=== PATIENT | male | born 1960 | race African-American/Black ===

== ENCOUNTER 2023-07-12 11:23 | Inpatient (IN) | payer OTHER ==
[2023-07-12 12:04] LABS: #Basophils 0.1 10x3/uL (0.0-0.2); #Eosinphils 0.1 10x3/uL (0.0-0.5); #Neutrophils 15.2 10x3/uL (1.5-8.4); %Basophils 0.3 % (0.0-2.0); %Eosinophils 0.3 % (0.0-6.0); %Lymphocytes 8.4 % (18.0-47.0); %Monocytes 10.4 % (0.0-10.0); %Neutrophils 79.8 % (40.0-75.0); Hematocrit 41.3 % (38.8-50.0); Hemoglobin 13.9 g/dL (13.5-17.5); Mean Corpuscular HGB CONC 33.7 g/dL (32.0-36.0); Mean Corpuscular Hemoglobin 30.6 pg (27.0-33.0); Mean Platelet Volume 10.7 fl (7.4-10.4); Platelet Count 474 10x3/uL (150-450); RBC Distribution Width 12.6 % (11.5-14.5); Red Blood Cell (RBC) Count 4.54 10x6/uL (4.32-5.72); White Blood Cell (WBC) Count 19.1 10x3/uL (3.5-10.5)
[2023-07-12] MEDS ORDERED: Cefepime 2 GM VIAL ONE (12:08)
[2023-07-12] MEDS ORDERED: VANCOMYCIN 2 GRAM/400 ML BAG 2 GM in Premix 1 BAG IVPB SCH (12:15)
[2023-07-12 12:46] LABS: ALT (SGPT) 261 U/L (8-55); AST (SGOT) 175 U/L (5-34); Albumin 3.1 g/dL (3.4-4.8); Alkaline Phosphatase 153 U/L (40-110); Anion Gap 15 mmol/L (10-20); BUN (Urea Nitrogen) 16 mg/dL (8.4-25.7); Bilirubin, Total 1.1 mg/dL (0.2-1.2); Calc. Creatinine Clearance 0 mL/min (70-130); Calcium 9.6 mg/dL (7.8-10.44); Carbon Dioxide 22 mmol/L (23-31); Chloride 105 mmol/L (98-107); Estimated GFR 69; Glucose 146 mg/dL (80-115); Potassium 3.7 mmol/L (3.5-5.1); Protein, Total 7.1 g/dL (5.8-8.1); Sodium 138 mmol/L (136-145)
[2023-07-12 15:20] LABS: CRP (Inflammatory) 29.72 mg/dL (= or < 0.5)
[2023-07-12] MEDS ORDERED: Ondansetron PF 4 MG/2 ML Vial IVP PRN (15:56)
[2023-07-12] MEDS ORDERED: Acetaminophen 325 MG TAB PO PRN (15:56)
[2023-07-12] MEDS ORDERED: Ondansetron ODT 4 MG TAB PO PRN (15:56)
[2023-07-12] MEDS ORDERED: Calcium Carbonate 500 MG ChewTAB PO PRN (15:56)
[2023-07-12] MEDS ORDERED: NIFEdipine XL 30 MG ER.TAB PO PRN (15:59)
[2023-07-12] MEDS ORDERED: Ketorolac Tromethamine 30 MG/ML VIAL IVP SCH (16:00)
[2023-07-12 16:32] VITALS: BMI 29.0
[2023-07-12] MEDS: HYDROcodone/Acetaminophen 5/325 mg Tablet PO PRN ×2 (18:00→23:50)
[2023-07-12 18:08] LABS: INR-International Normal Ratio 1.1; PTT 29.3 sec (22.0-33.0); Prothrombin Time 12.2 sec (9.5-12.1)
[2023-07-12] MEDS: Cefepime 2 GM in Sodium Chloride 0.9% 100 ML IVPB SCH (20:52)
[2023-07-12] MEDS: Gabapentin 400 MG CAP PO SCH (20:53)
[2023-07-12] MEDS: Famotidine 20 MG TAB PO SCH (20:53)
[2023-07-12] MEDS: Folic Acid 1 MG TAB PO SCH (20:53)
[2023-07-12] MEDS: Multivit, Therapeutic 1 TAB PO SCH (20:53)
[2023-07-12] MEDS: Thiamine 100 MG TAB PO SCH (20:53)
[2023-07-12] MEDS: Vancomycin 1.5 GRAM/300 ML BAG 1.5 GM in Premix 1 BAG IVPB SCH (23:14)
[2023-07-13 05:40] LABS: #Basophils 0.1 10x3/uL (0.0-0.2); #Eosinphils 0.1 10x3/uL (0.0-0.5); #Monocytes 2.6 10x3/uL (0.0-1.1); #Neutrophils 14.2 10x3/uL (1.5-8.4); %Basophils 0.4 % (0.0-2.0); %Eosinophils 0.5 % (0.0-6.0); %Lymphocytes 8.7 % (18.0-47.0); %Monocytes 13.7 % (0.0-10.0); %Neutrophils 75.6 % (40.0-75.0); Hematocrit 35.2 % (38.8-50.0); Hemoglobin 12.1 g/dL (13.5-17.5); Mean Corpuscular HGB CONC 34.4 g/dL (32.0-36.0); Mean Corpuscular Hemoglobin 31.2 pg (27.0-33.0); Mean Corpuscular Volume 90.7 fl (81.2-95.1); Mean Platelet Volume 10.7 fl (7.4-10.4); Platelet Count 422 10x3/uL (150-450); RBC Distribution Width 12.7 % (11.5-14.5); Red Blood Cell (RBC) Count 3.88 10x6/uL (4.32-5.72); White Blood Cell (WBC) Count 18.8 10x3/uL (3.5-10.5)
[2023-07-13 06:00] LABS: Anion Gap 13 mmol/L (10-20); BUN (Urea Nitrogen) 14 mg/dL (8.4-25.7); Calc. Creatinine Clearance 125 mL/min (70-130); Carbon Dioxide 22 mmol/L (23-31); Chloride 108 mmol/L (98-107); Estimated GFR 94; Glucose 123 mg/dL (80-115); Potassium 3.8 mmol/L (3.5-5.1); Sodium 139 mmol/L (136-145)
[2023-07-13] MEDS: HYDROcodone/Acetaminophen 5/325 mg Tablet PO PRN ×5 (06:15→23:56)
[2023-07-13] MEDS: Cefepime 2 GM in Sodium Chloride 0.9% 100 ML IVPB SCH ×2 (09:32→20:05)
[2023-07-13] MEDS: Gabapentin 400 MG CAP PO SCH ×2 (09:32→20:02)
[2023-07-13] MEDS: Famotidine 20 MG TAB PO SCH ×2 (09:33→20:02)
[2023-07-13] MEDS: Vancomycin 1.5 GRAM/300 ML BAG 1.5 GM in Premix 1 BAG IVPB SCH ×3 (11:59→23:53)
[2023-07-13 12:54] LABS: Hemoglobin A1c 5.8 % (4.0-6.0)
[2023-07-13] MEDS: Folic Acid 1 MG TAB PO SCH (20:02)
[2023-07-13] MEDS: Multivit, Therapeutic 1 TAB PO SCH (20:02)
[2023-07-13] MEDS: Thiamine 100 MG TAB PO SCH (20:04)
[2023-07-13] MEDS: Senokot S 8.6-50 MG TAB PO SCH (20:04)
[2023-07-13] MEDS: NIFEdipine XL 30 MG ER.TAB PO SCH (23:00)
[2023-07-13 23:41] LABS: Vancomycin, Trough 12.4 ug/mL
[2023-07-14 04:16] LABS: #Basophils 0.1 10x3/uL (0.0-0.2); #Eosinphils 0.1 10x3/uL (0.0-0.5); #Neutrophils 14.5 10x3/uL (1.5-8.4); %Basophils 0.5 % (0.0-2.0); %Eosinophils 0.7 % (0.0-6.0); %Lymphocytes 8.6 % (18.0-47.0); %Neutrophils 73.8 % (40.0-75.0); Hematocrit 35.1 % (38.8-50.0); Hemoglobin 11.8 g/dL (13.5-17.5); Mean Corpuscular HGB CONC 33.6 g/dL (32.0-36.0); Mean Corpuscular Hemoglobin 30.6 pg (27.0-33.0); Mean Corpuscular Volume 90.9 fl (81.2-95.1); Mean Platelet Volume 10.4 fl (7.4-10.4); Platelet Count 463 10x3/uL (150-450); RBC Distribution Width 12.8 % (11.5-14.5); Red Blood Cell (RBC) Count 3.86 10x6/uL (4.32-5.72); White Blood Cell (WBC) Count 19.7 10x3/uL (3.5-10.5)
[2023-07-14 04:32] LABS: ALT (SGPT) 290 U/L (8-55); AST (SGOT) 184 U/L (5-34); Albumin 2.7 g/dL (3.4-4.8); Alkaline Phosphatase 150 U/L (40-110); Anion Gap 12 mmol/L (10-20); BUN (Urea Nitrogen) 11 mg/dL (8.4-25.7); Bilirubin, Direct 0.6 mg/dL (0.1-0.3); Calc. Creatinine Clearance 115 mL/min (70-130); Calcium 8.9 mg/dL (7.8-10.44); Carbon Dioxide 23 mmol/L (23-31); Chloride 103 mmol/L (98-107); Estimated GFR 85; Glucose 115 mg/dL (80-115); Potassium 3.9 mmol/L (3.5-5.1); Protein, Total 6.4 g/dL (5.8-8.1); Sodium 134 mmol/L (136-145)
[2023-07-14] MEDS: HYDROcodone/Acetaminophen 5/325 mg Tablet PO PRN ×3 (06:35→15:32)
[2023-07-14] MEDS: Cefepime 2 GM in Sodium Chloride 0.9% 100 ML IVPB SCH (09:34)
[2023-07-14] MEDS: Famotidine 20 MG TAB PO SCH (09:35)
[2023-07-14] MEDS: NIFEdipine XL 30 MG ER.TAB PO SCH (09:36)
[2023-07-14] MEDS: Senokot S 8.6-50 MG TAB PO SCH (09:36)
[2023-07-14] MEDS: Gabapentin 400 MG CAP PO SCH (09:36)
[2023-07-14] MEDS: Vancomycin 1.5 GRAM/300 ML BAG 1.5 GM in Premix 1 BAG IVPB SCH (11:04)
[2023-07-14] MEDS ORDERED: Polyethylene Glycol 3350 17 GM Packet PO PRN (11:44)
[2023-07-14 13:44] VITALS: BP 156/78; TEMP 99.9
== END 2023-07-14 15:59 | disposition short-term general hospital (02) | DRG 872 ==
LOC: CSHERS 11:23 → CSHTELE 14:54
PROVIDERS: ADMIT Internal Medicine; ATTEND Internal Medicine
DX: A41.9 Sepsis, unspecified organism (principal); L03.116 Cellulitis of left lower limb; M54.50 Low back pain, unspecified; G89.29 Other chronic pain; G62.9 Polyneuropathy, unspecified; M10.9 Gout, unspecified; K21.9 Gastro-esophageal reflux disease without esophagitis; F10.90 Alcohol use, unspecified, uncomplicated; I12.9 Hypertensive chronic kidney disease with stage 1 through stage 4 chronic kidney disease, or unspecified chronic kidney disease; N18.2 Chronic kidney disease, stage 2 (mild); R79.89 Other specified abnormal findings of blood chemistry; M25.462 Effusion, left knee; Z98.890 Other specified postprocedural states
CPT/HCPCS: 36415; 76705; 80048; 80053; 80076; 80202; 83036; 83605; 83690; 85025; 85610; 85730; 86140; 87040; 94760; 97139; J0692; J1650; J3370; J3490